=== PATIENT | female | born 1995 | race Caucasian/White ===

== ENCOUNTER 2021-04-30 20:14 | Emergency (ER) | payer OTHER ==
[~2021-04-30] VITALS: Ht 157.5 cm; Wt 59.0 kg
[2021-04-30 20:43] VITALS: BP 127/76
--- NOTE | 2021-04-30 20:43 | NUR ---
TO BED AMBULATORY
--- NOTE | 2021-04-30 21:00 | NUR ---
26/F C/O VAGINAL BLEEDING, LOWER ABD CRAMPING, PT 6 WEEKS . LMP 03/16/21. +NAUSEA/+DIARRHEA [id number] PMH: BRAIN TUMOR (ON REMISSION) NKDA
[2021-04-30 21:23] LABS: BASOPHILS # (AUTO) 0.1 K/uL (0.00-0.22); BASOPHILS % (AUTO) 0.5 % (0.0-2.0); EOSINOPHILS # (AUTO) 0.1 K/uL (0-0.4); HEMATOCRIT 43.5 % (36-48); HEMOGLOBIN 14.8 g/dL (12.0-16.0); LYMPHOCYTES # (AUTO) 2.1 K/uL (2.5-16.5); LYMPHOCYTES % (AUTO) 18.3 % (20.5-51.1); MEAN CORPUSCULAR HEMOGLOBIN 31 pg (27-31); MEAN CORPUSCULAR HGB CONC 34 g/dL (33-37); MEAN CORPUSCULAR VOLUME 90.4 fL (80-94); MONOCYTES # (AUTO) 0.6 K/uL (0.8-1.0); MONOCYTES % (AUTO) 5.2 % (1.7-9.3); NEUTROPHILS # (AUTO) 8.6 K/uL (1.8-7.7); PLATELET COUNT (AUTO) 242 K/uL (140-450); RED BLOOD CELL COUNT(AUTO) 4.81 MIL/uL (4.20-5.40); RED CELL DISTRIBUTION WIDTH 12.5 % (11.6-13.7); WHITE BLOOD COUNT (AUTO) 11.5 K/uL (4.8-10.8)
--- NOTE | 2021-04-30 21:29 | NUR ---
Ultrasound at bedside.
--- NOTE | 2021-04-30 22:00 | NUR ---
Dr. Cha examining patient.
[2021-04-30 23:30] VITALS: BP 127/76
--- NOTE | 2021-04-30 23:30 | NUR ---
Patient discharged with v/s stable. Written and verbal after care instructions given and explained. Patient verbalized understanding. Ambulatory with steady gait. All questions addressed prior to discharge. Advised to follow up with PMD.
== END 2021-04-30 23:30 | disposition home or self-care (01) ==
LOC: MED 20:14
DX: O46.8X1 Other antepartum hemorrhage, first trimester (principal); Z85.841 Personal history of malignant neoplasm of brain; Z3A.01 Less than 8 weeks gestation of pregnancy
CPT/HCPCS: 36415; 76817; 84702; 85025; 86901; 99284; Q0092